=== PATIENT | female | born 1930 | race Caucasian/White ===

== ENCOUNTER 2017-02-04 21:57 | Emergency (ER) | payer MEDICARE, OTHER | END 2017-02-04 22:37 | disposition home or self-care (01) | LOC: D.ER 21:57 | DX: S60.042A Contusion of left ring finger without damage to nail, initial encounter (principal); W19.XXXA Unspecified fall, initial encounter; Y93.89 Activity, other specified; Y92.029 Unspecified place in mobile home as the place of occurrence of the external cause; E11.9 Type 2 diabetes mellitus without complications; Z79.4 Long term (current) use of insulin ==